=== PATIENT | male | born 1970 | race Caucasian/White ===

== ENCOUNTER 2025-03-26 02:56 | Inpatient (IN) | payer BC, SELFPAY ==
[2025-03-25 22:56] VITALS: BMI 22.6
[2025-03-25 22:59] VITALS: BP 168/110
[2025-03-25 23:42] LABS: Hematocrit 40.2 % (39.0-52.0); Hemoglobin 14.5 g/dL (13.0-18.0); Mean Corp Hgb Conc. 36.1 g/dL (33.0-37.0); Mean Corpuscular Volume 87.6 fL (80.0-94.0); Nucleated Red Blood Cells % 0 % (-); Platelet Count 232 10^3/uL (130-400); Red Cell Dist. Width 13.2 % (11.5-14.5)
[2025-03-25] MEDS: LOW STRENGTH ASPIRIN 324 MG PO (23:46)
[2025-03-25 23:47] VITALS: BP 158/107
[2025-03-25] MEDS: NITROSTAT (SUBLINGUAL) 0.4 MG SL (23:47)
[2025-03-25 23:57] LABS: ALT (SGPT) 16 U/L (0-50); AST (SGOT) 27 U/L (17-59); Albumin 4.8 g/dl (3.5-5.0); Alkaline Phosphatase 35 U/L (38-126); Blood Urea Nitrogen 10 mg/dl (9-20); Calcium 9.2 mg/dl (8.4-10.2); Carbon Dioxide 20 mmol/L (22-30); Chloride 105 mmol/L (98-107); Glucose 98 mg/dl (70-99); Potassium 3.6 mmol/L (3.5-5.1); Sodium 135 mmol/L (135-145); Total Protein 7.6 g/dl (6.3-8.2); eGFR > 60.00
[2025-03-26] VITALS (31 sets, daily range): BP systolic 109–155; BP diastolic 81–112
--- NOTE | 2025-03-26 00:14 | ED.GENMED ---
History of Present Illness
General
Chief Complaint: Chest Pain
Source: patient and spouse
Time Seen by Provider: 03/25/25 23:14
History of Present Illness
History of Present Illness:
55-year-old male presents to the emergency room complaining of chest discomfort. 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 Patient was loading his equipment into his car when began. He describes the
chest discomfort as sort of a heaviness. He has some radiation to his back into his left arm. He rates it a 6-7 out of 10. No associated nausea, shortness of breath or diaphoresis. Patient denies any known cardiac history. He denies
hypertension or high cholesterol. He does smoke about a pack a day. He drinks 3-4 drinks a day.
Past History
Past History
ED Past Medical History: None
ED Past Surgical History: Urological and Other (Hernia/wisdom teeth/volvulus)
Social History
Tobacco: Smoker
Alcohol: Daily
Drug: None
Personal:
Living: with family
Employment: Employed
Phy Exam
Physical Exam
Physical Exam:
General: Awake, Alert, Oriented X3. No acute distress.
Vitals: unremarkable
Head: Atraumatic
Eyes: Pupils equal, EOMI
Throat: Airway intact, no exudates
Neck: Trachea midline
Lungs: Clear and equal b/l
Heart: Regular rate, no murmurs
Abd: Soft, Nontender, No pulsatile mass
Neuro: Nonfocal
Skin: Warm, dry, no rash
Extremities: pulses equal b/l, no edema
Scores
Heart Score for Chest Pain Patients
STEMI patient?: Yes
Course
Orders/Labs/Results
Orders:
Orders
03/25/25 23:02
Electrocardiogram (*1) Urgent
Reason for Study: Other
Other Reason for Exam: Respiratory Distress
Cardiac Monitoring- Treatment ONCE
EKG- Treatment ONCE
IV Insert/Care/Rem.- Treatment PRN
O2 Therapy [RESP] Urgent
Titrate/Wean O2 to maintain O2 sat greater than (%): 93
Special Instructions: TO MAINTAIN CONTINUOUS O2 SATS >/= 93%
Pulse Ox/cont/shift [RESP] Urgent
Quantity: 1
Special Instructions: continuous pulse ox
03/25/25 23:19
Aspirin Chewable [Low Strength Aspirin] 324 mg PO NOW STA
Nitroglycerin Sublingual [Nitrostat (Sublingual)] 0.4 mg SL NOW STA
03/25/25 23:23
Electrocardiogram (*1) Urgent
Reason for Study: Chest Pain
EKG- Treatment ONCE
03/25/25 23:28
Complete Blood Count/With Diff Urgent
Comprehensive Metabolic Panel Urgent
NT-proBNP Urgent
Troponin I Urgent
03/26/25 00:00
CR Chest - 2 Views Urgent
Reason For Exam: respiratory distress
03/26/25 00:14
Nitroglycerin Sublingual [Nitrostat (Sublingual)] 0.4 mg SL [id number] PRN
03/26/25 00:23
Heparin 4,000 units IV NOW STA
Nitroglycerin 100 mg/250 ml [Nitroglycerin Premix] 100 mg in 250 ml IV NOW
Initial dose in mcg/min, then titrate:: 5
Titrate to keep:: SBP < 160 mmHg
Titrate by mcg/min:: 5 mcg/min, may increase by 10 mcg/min if dose > 20 mcg/min
Frequency of titrations (minutes):: every 3-5 minutes
Maximum dose in mcg/min:: 200
Begin to taper infusion when:: Remained at goal for 2hrs
Taper by mcg/min:: 5 mcg/min
Frequency of taper (minutes) if patient maintains goal:: 30
Taper to off?: Yes
If infusion off & no longer maintaining goal:: Contact Provider
Pharmacy Request to Place See Dose Instructions PO NOW STA
Discontinue all Active Warfarin orders?: Yes
Nursing to Place Non Medication Order As Directed
Physician Order: PTT 6 hours after initial start of Heparin infusion
Above order entered?: Yes
03/26/25 00:27
Electrocardiogram (*1) Urgent
Reason for Study: Chest Pain
EKG- Treatment ONCE
03/26/25 00:28
PTT Urgent
Comment: Obtain baseline before beginning heparin infusion if not already collected
03/26/25 00:30
Heparin 63338 Units/250 ml 25,000 units in 250 ml IV PER PROTOCOL
Weight to be used for heparin protocol in kilograms (kg):: 77.8
Protocol:: Cardiac Tx/Acute Coronary
PTT Goal Range to be used:: PTT 73 to 111 seconds
Order type:: Initial
INITIAL Infusion Dose (UNITS/KG/hr) & then follow protocol:: 15 units/kg/hr
Infusion Dose in UNITS/hr & then follow protocol (UNITS/hr):: 1,150
INFUSION RATE in mL/hr & then follow protocol (mL/hr):: 11.5
PTT less than or equal to 64 seconds:: Increase rate by 200 units/hr (+ 2 mL/hr)
PTT 64.1 to 72.9 seconds:: Increase rate by 100 units/hr (+ 1 mL/hr)
PTT 73 to 111 seconds:: Target Range. No change in rate.
PTT 111.1 to 130.9 seconds:: Decrease rate by 100 units/hr (- 1 mL/hr)
PTT 131 to 199.9 seconds:: HOLD for 1 hr. Then decrease rate by 200 units/hr (- 2 mL/hr)
PTT greater than or equal to 200 seconds:: HOLD for 2 hrs & Notify Provider. Then decrease by 200 units/hr (-
2 mL/hr)
Lab follow-up:: Each change, PTT q6h until 2 consecutive are therapeutic. Then PTT
daily.
03/26/25 01:[address] See Dose Instructions IV DIRECTED
03/26/25 01:03
Verapamil Injectable [Isoptin/Verapamil Injection] 5 mg .ROUTE .STK-MED ONE
03/26/25 01:04
Heparin 10,000 units .ROUTE .STK-MED ONE
Heparin 1000 Units/500 ml [Heparin] 1,000 units in 500 ml .ROUTE .STK-MED
Lidocaine HCl/Pf [Xylocaine-Mpf 1% Vial] 100 mg .ROUTE .STK-MED ONE
Nitroglycerin [Tridil] 1,500 mcg .ROUTE .STK-MED ONE
03/26/25 01:17
Fentanyl Citrate/Pf [Sublimaze] 100 mcg .ROUTE .STK-MED ONE
Midazolam HCl [Versed] 2 mg .ROUTE .STK-MED ONE
03/26/25 01:42
EPTIFIBATIDE 75 mg/100 mL [Integrilin] 75,000 mcg in 100 ml .ROUTE .STK-MED
Eptifibatide [Integrilin] 20 ml .ROUTE .STK-MED
03/26/25 01:57
Ticagrelor [Brilinta] 180 mg .ROUTE .STK-MED ONE
03/26/25 02:44
Admit Patient As Directed
Co-Sign Provider:
Level of Care: Inpatient admission
Assign to:: IVU
Physician / Group: Claude/GAMALIEL until 7AM, then Eddie/ROBBIE.
Diagnosis: Anterior STEMI.
Patient Condition: Good
Reason for Hospitalization: Anterior STEMI.
Expected length of stay greater than two midnights?: Yes
ELOS- Estimated Length of Stay in days: 4
I certify the patient meets the requirements for IP care: Yes
Reason for Overnight Stay: Standard of Care
Electrocardiogram (*1) Urgent
Reason for Study: Other
Other Reason for Exam: s/p intervention
Code Status As Directed
Resuscitation Status: Full Code
CARDIAC REHAB CONSULT Routine
Co-Sign Provider:
Cardiac Rehab & Exercise Evaluation Referral
Type of Cardiac Rehab Referral: Outpatient
Diagnosis: STEMI
Date of Diagnosis/Surgery: 03/26/2025
Referring Provider: Hung Arce
[facility] Intensive Cardiac Rehab Exercise Prescription
The above named person is capable of participating in an intensive cardiac rehab exercise therapy program
under the guidance of the [facility] cardiac rehab staff, outpatient registered dieticians and
supervision of a physician.
ICR Program Objectives:
Provide supervised exercise, cooking classes, nutritional counseling and healthy mind-set education to
improve the function/symptom free work capacity to an optimal level as well as control risk factors to
prevent the progression of heart disease. During the supervised exercise therapy session some or all of
the following may be included in the cardiac rehab session: ECG telemetry, BP, heart rate, rate of
perceived exertion, symptoms/tolerance, cholesterol testing and education. Exercise modalities may
include: treadmill, upright or recumbent bike, spin bike, rowing machine, elliptical, recumbent
elliptical, arm-bike machine, recumbent stepper and free weights.
Intensity:
All CR staff will use ACSM guidelines: Most patients will exercise in the following range: Heart Rate
[place] range of 40% to 80% & Oxygen Uptake reserve range 40-80% (VO2R). Peak heart rate and VO2 are
derived from the cardiac rehab submaximal graded exercise test at RPE of 13/14 out of 20. Initial
intensity range: RPE 11 to 14/20 and may expand to 11 to 16/20.
Duration & Frequency:
If appropriate the patient will be progressed up to 40 minutes of exercise therapy. Patients will be
instructed to come three times a week in cardiac rehab and at a home/other gym to achieve optimal
physical activity/exercies i.e. 4000-10,000 steps per day.
Education:
The patient will receive one-on-one education during their orientation, initial exercise evaluation, ITP
reassessments and discharge session. Each exercise session will also include an education class (30-40
minutes).
Acetaminophen [Tylenol] 650 mg PO Q4HPRN PRN
Fentanyl Citrate/Pf [Sublimaze] 25 mcg IV [id number] PRN
Midazolam HCl [Versed] 1 mg IV Q5MPRN PRN
Morphine Sulfate 2 mg IV Q1HPRN PRN
Nitroglycerin Sublingual [Nitrostat (Sublingual)] 0.4 mg SL [id number] PRN
Oxycodone/Acetaminophen [Percocet 5/325] 1 tablet PO Q4HPRN PRN
Activity As Directed
Activity Level: Out of Bed- Chair
Comment: bed/chair rest for 2 hours then out of bed ad rafal
Band Attacher Procedure As Directed
Cardiac Cath Procedure: percutaneous coronary intervention
Intake/ Output As Directed
Frequency: Per unit guidelines
Notify MD As Directed
Notify physician if: immediately for chest pain or bleeding from access site(s)
Radial Artery Hemostasis Method As Directed
Instructions:: 3 mL out at 2 hour posts placement of band
3 mL out at 2 1/2 hours post placement of band
3 mL out at 3 hours post placement of band
Off at 3 1/2 hours post placement of band
If any oozing or hemotoma occurs:: re-inflate band and call provider
Site Checks As Directed
Check access site for bleeding/hematoma: Yes
Comment: on arrival, Q15min x4, Q30min x2, Q1 hr x2, Q2 hr x2, Q4 hr or per
protocol
Vascular Checks As Directed
Location: distal to access site - pulse check
Frequency: Other
Comment: on arrival, Q15min x4, Q30min x2, Q1 hr x2, Q2 hr x2, Q4 hr or per protocol
Venous Foot Pumps As Directed
Location: Bilateral feet
Vital Signs As Directed
Frequency: Other
Additional Instructions:: on arrival, Q15min x4, Q30min x2, Q1 hr x2, Q2 hr x2, then Q4 hr or per unit
protocol
PRN Pain Medication Management As Directed
May give lesser potent ordered pain med per pt: Yes
preference::
Protocol:: Medication orders for pain may be administered in a
manner that supports deferring to patient preference
when the pt is:
- Requesting an ordered lesser potent pain medication.
Least to most potent pain medications are defined
as: acetaminophen < NSAID < tramadol < opioids
(morphine, oxycodone, hydromorphone).
- Requesting a lesser dose of the same medication IF
ORDERED.
- Requesting a less intrusive route of administration
if both routes are prescribed by the provider (PO <
IV).
03/26/25 02:45
0.9% Sodium Chloride 1000 ml [Nss] 1,000 ml IV PER PROTOCOL
Infusion rate in mL/kg/hr:: 1.5
Infusion rate in mL/hr:: 117
Duration of infusion (hours):: 5
EPTIFIBATIDE 75 mg/100 mL [Integrilin] 75,000 mcg in 100 ml IV ORDERED RATE
DX Deep Vein Thrombosis Video Routine
03/26/25 03:00
Flush (0.9% Sodium Chloride) [Flush (Nss)] See Dose Instructions IV PER PROTOCOL
03/26/25 03:56
Basic Metabolic Panel IN AM
Complete Blood Count/No Diff IN AM
Glycohemoglobin (HgbA1c) Routine
Troponin I Q6H
03/26/25 06:00
Echo 2D MMode Color/Doppler IN AM
Reason for Study: Anterior STEMI.
Electrocardiogram (*1) IN AM
Reason for Study: Other
Other Reason for Exam: s/p intervention
Cholesterol Lowering
At Your Request: Full Participation
Cholesterol Lowering: Sodium, 2 Gram
03/26/25 08:00
Ticagrelor [Brilinta] 90 mg PO BID
03/26/25 08:50
Troponin I Q6H
03/26/25 14:28
Troponin I Q6H
03/26/25 18:00
Atorvastatin [Lipitor] 40 mg PO QPM
Abnormal Lab Results
03/25/25 03/26/25 03/26/25
23:28 01:40 02:33
WBC 12.0 H 10^3/uL
(4.8-10.8)
RBC 4.59 L 10^6/uL
(4.70-6.10)
MCH 31.6 H pg
(27.0-31.0)
Abs Immat Gran (auto) 0.1 H 10^3/uL
(0-0.05)
Absolute Neuts (auto) 9.0 H 10^3/uL
(1.4-6.5)
Absolute Monos (auto) 0.9 H 10^3/uL
(0.1-0.6)
Neutrophils % 75.4 H %
(42.2-75.2)
Lymphocytes % 15.2 L %
(20.5-51.1)
Carbon Dioxide 20 L mmol/L
(22-30)
Total Bilirubin 1.5 H mg/dl
(0.2-1.3)
Alkaline Phosphatase 35 L U/L
(38-126)
Troponin I 0.135 H* ng/ml
POC ACT Low Range 398 H Seconds 310 H Seconds
(116-155) (116-155)
03/25/25 23:28
03/25/25 23:28
Vital Signs
Initial and Last Documented VS:
Initial Vital Signs
Temp Pulse Resp BP Pulse Ox
97.8 F 73 20 168/110 100
03/25/25 22:59 03/25/25 22:59 03/25/25 22:59 03/25/25 22:59 03/25/25 22:59
Last Documented Vital Signs
Temp Pulse Resp BP Pulse Ox
98.3 F 65 18 141/87 98
03/26/25 20:27 03/26/25 20:45 03/26/25 20:27 03/26/25 20:27 03/26/25 20:27
MDM/Problems Addressed
Differential Diagnosis Includes:
STEMI, NSTEMI, unstable angina, pneumothorax
MDM/Problems Addressed:
Patient presents with chest pain. Description of pain is concerning for coronary syndrome. Initial EKG was abnormal in appearance to me but because I did not see reciprocal changes decided to repeat an EKG to see if there is dynamic changes.
Second EKG appeared more normal. Therefore the plan was to treat with nitro to see if we can make her pain-free. Patient's chest pain did not significantly improve with sublingual nitro baby aspirin. Nitro drip was ordered. First troponin came
back positive at 0.135. 30 EKG was obtained which appears to showed progression and in consultation with Dr. Pena STEMI alert was called. Reason for delay of STEMI alert is diagnostic uncertainty
*Radiology
Radiology exam reviewed: preliminary read by ED provider (No acute disease in my review of the chest x-ray)
*Pulse Oximetry
SaO2: 99
Oxygen Mode of Delivery: Room air
Patient hypoxic: no
*Nuclear Medicine Chief Technologist Interpretation
Rate: normal
Interpretation: normal
Heart Rate: 59
Rhythm: sinus
*Critical Care Note
Total Time (30-74mins, 75-104mins- exclusive of procedures): 45 min
comment:
Critical care statement: A total of 45 minutes of critical care time was provided for this patient. This includes management of unstable vital signs, evaluation of the patient at bedside, reviewing the patient's pertinent medical records, discussion
with consultants, review of old EKGs and review of pertinent medical records. This time with separate from time utilized to perform the aforementioned documented procedures
ED Attending Note
-
Portions of this chart may have been created with voice recognition software.� Occasional wrong word or��sound alike� substitutions may have occurred due to the inherent limitations of voice recognition software.
Discharge Plan
Departure
Patient Disposition: Admit
Date of Disposition: 03/26/25
Time of Disposition: 00:42
Admit to: greens lab[facility]
Presentation/result/management discussed w/ accepting MD/DO: Rodríguez
Condition: Serious
Discharge Problem:
ST elevation (STEMI) myocardial infarction
Interventions
Interventions:
*Risk Screen - Suicide Last Done: 03/26/25 01:24
*General Assessment Last Done: 03/26/25 01:24
*Neglect/Abuse Screening Last Done: 03/26/25 01:24
*ED- Fall Risk Assessment Last Done: 03/26/25 01:24
*ED COVID-19 Vaccine History Last Done: 03/26/25 01:24
*Nursing Disposition Last Done: 03/26/25 01:24
ED- Cardiac Assessment Last Done: 03/26/25 01:24
Discharge Date and Time
Discharge Date/Time: 03/26/25 01:27
[2025-03-26 00:15] LABS: Troponin I 0.135 ng/ml
[2025-03-26] MEDS: NITROSTAT (SUBLINGUAL) 0.4 MG SL (00:16)
[2025-03-26] MEDS: HEPARIN 4000 UNITS IV (00:31)
[2025-03-26] MEDS: NITROGLYCERIN PREMIX 250 IV (00:32)
[2025-03-26 00:45] LABS: APTT 28.5 Sec (23.4-35.0)
--- NOTE | 2025-03-26 01:00 | PTCARENOTE ---
Dr rodriguez obtained consent at bedside. report given to laborer syrup machine RN. Pt transported on monitor and nitro gtt to laborer syrup machine
--- NOTE | 2025-03-26 01:05 | HPS.HSE ---
Family Physician
-
Family Physician: NOT KNOW UNKNOWN - PT DOES
Chief Complaint
-
Chest pain.
History of Present Illness
55 y/o male tobacco user without significant past medical history presenting with 2+ hours of chest pain. 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 Pain persisted after arriving home and he was transported to [facility].
Pain was 8/10 at its worst, now 2/10 after nitroglycerin and medical management. Initial EKG shows possible anterior ALFONSO, though not absolutely definitive. Symptoms were persistent and progressive EKG's became more concerning. STEMI alert was
called for likely STEMI equivalent after discussing cardiology.
Medical History
Past Medical History
Past Medical History: Reports None
Past Surgical History: Reports Bowel Resection (Laproscopic ileocolectomy with primary anastamosis.)
Social History
Tobacco: Smoker (1 PPD x many years.)
Alcohol: Daily (4-5 beers.)
Drug: None
Personal:
Living: With Family
Family History
Family History: Not pertinent
Allergies / Home Medications
Allergies reflects when Allergies were last updated in [employer].
Home Medications with original date entered in [employer]
Allergy/Medication List:
Home Medications:
None.
Allergies:
NKDA.
Review of Systems
-
History Source: Patient and Family
Constitutional: Reports See HPI
EENT: Reports No Symptoms
Respiratory: Reports No Symptoms
Cardiac: Reports Chest Pain
Abdomen/GI: Reports No Symptoms
: Reports No Symptoms
Musculoskeletal: Reports No Symptoms
Physical Exam
Vital Signs
Vital Signs
Temp Pulse Resp BP Pulse Ox
36.6 C 65 18 141/94 98
03/26/25 01:00 03/26/25 01:00 03/26/25 01:00 03/26/25 00:16 03/26/25 01:00
Physical Exam
General: Well Developed, Well Nourished, No Apparent Distress and Conversant
HEENT: NormoCephalic, Anicteric, Moist mucous membranes, Atraumatic, Good Dentition, PERRLA, [place] Conjunctivae, No Ptosis, Nose Appears Normal, Ears Appear Normal and Neck Nontender
Respiratory: Clear, Rhonchi (Mild basilar rhonchi, cleared with cough.) and Non Labored Respirations
Cardiac: S1/S2 and Regular Rhythm
Breast: Deferred by me
GI: Soft, Non Tender, Non Distended and Normal Bowel Sounds
Rectal: Deferred by Provider
Genito-urinary: Deferred by me
Musculoskeletal: No Clubbing, No Cyanosis and No Edema
Skin: Warm and Dry
Neuro: AO x 3, No Motor Deficits and Nonfocal/grossly intact
Hematologic/Lymphatic: No Lymphadenopathy
Psych: Calm and Intact Judgment/Insight
Laboratory Results
-
03/25/25 23:28
03/25/25 23:28
Laboratory Results
APTT 28.5 Sec (23.4-35.0) 03/26/25 00:28
Total Bilirubin 1.5 mg/dl (0.2-1.3) H 03/25/25 23:28
AST 27 U/L (17-59) 03/25/25 23:28
ALT 16 U/L (0-50) 03/25/25 23:28
Alkaline Phosphatase 35 U/L (38-126) L 03/25/25 23:28
Troponin I 0.135 ng/ml H* 03/25/25 23:28
Data Reviewed
-
Diagnostic Radiology: Image Personally Visualized and interpreted and Report Reviewed by me
Medical Tests (Nuc Med, Echo, EKG etc): Image Personally Visualized and interpreted, Report Reviewed by me and Discussed with Physician
Lab Data: Labs Reviewed by me and Discussed with Physician
Old Records: Reviewed
Impression/Plan
-
Impression/Plan: 55 y/o male tobacco user presenting with chest pain, abnormal EKG with borderline anterior ALFONSO and abnormal troponin, deemed to be a STEMI equivalent.
#ACS/STEMI
-Acute, threat to life.
-Plan for emergent cardiac catheterization/coronary angiography with ad hoc PCI.
-Heparin/aspirin/nitro given in ER.
-Risks/benefits explained.
-Consent is signed and on the chart.
-Further instructions to follow.
#Tobacco abuse
-Chronic.
-Recommended full cessation.
#EtOH use
-Chronic, 4-5 beers daily.
-Recommended curbing his volume/abstinence.
-Monitor for signs of withdrawal/DT's.
-[employer] post farm laborer.
[2025-03-26 01:47] LABS: ACT-LR - POC 398 Seconds (116-155)
[2025-03-26 02:40] LABS: ACT-LR - POC 310 Seconds (116-155)
--- NOTE | 2025-03-26 02:48 | ITS.CL.CATH ---
Gameplay Programmer - Catheterization
Cardiac Catheterization
Procedure Report:
CARDIAC CATHETERIZATION REPORT
Date of Procedure: 03/26/2025
Referring: Ta Ramirez D.O.
INDICATION: Anterior ST elevation myocardial infarction.
PROCEDURE:
1. Left heart catheterization.
2. Coronary angiography
3. Successful aspiration thrombectomy of the mid LAD.
4. Successful PCI of the mid LAD.
5. Successful PCI of the proximal LAD.
6. Intravascular ultrasound.
A total of 76 minutes of procedural/moderate sedation was utilized. An independent medical equipment repairer was present to assist with and help manage the patient's level of consciousness and physiologic status.
ACCESS:
1. 6 [place] right radial artery using a modified Seldinger technique.
CATHETERS:
1. 5 [place] JR4.
2. 5 [place] JL 3.5.
3. 6 [place] EBU 3.5 guiding catheter.
HEMODYNAMIC DATA
Weight (kg): 77.6
AO (s/d/x, mmHg): 119/80/96
LV (s/x mmHg): 122/10
LEFT VENTRICULOGRAPHY: Not performed.
CORONARY ANGIOGRAPHY
Dominance: Left.
Left Main: Large size, bifurcating vessel. There is no coronary artery disease.
LAD: Large size vessel giving rise to 1 large diagonal. There is a 30% lesion in the ostium of the LAD. There is a 70% lesion in the proximal/mid LAD, immediately after the origin of the first diagonal. The mid LAD is acutely occluded
approximately 10 mm distal to the 70% lesion. The occlusive lesion extends approximately 30 mm distal.
Ramus: Congenitally absent.
Circumflex: Large size, dominant vessel giving rise to a large obtuse marginal which subsequently bifurcates into 2 daughter vessels. There is a 50-60% lesion in the distal circumflex, distal to the origin of the obtuse marginal well proximal to
the vessel becoming the LPDA.
RCA: Small size, nondominant vessel. There is no coronary artery disease.
INTERVENTION(S)
1. Successful aspiration thrombectomy of the mid LAD, restoring WILD-3 flow.
2. Successful IVUS guided PCI of the 100% mid LAD lesion (Xience Skypoint 3.0 x 38 GREGORY, postdilated with a 3.0 NC balloon, followed by a 3.25 NC balloon throughout), with reduction in stenosis to 0%, maintaining WILD-3 flow.
3. Successful IVUS guided PCI of the 70% proximal/mid LAD lesion (Xience Skypoint 3.5 x 23 GREGORY overlapping with the distal 3.0 stent, postdilated with a 3.75 NC balloon throughout, followed by a 5.0 x 8 NC balloon in the proximal margin) with
reduction in stenosis to 0%, maintaining WILD-3 flow.
Narrative:
The decision was made to proceed with percutaneous coronary intervention. The diagnostic catheter was removed over a wire and a 6Fr EBU 3.5 guiding catheter was advanced to the aortic root and seated in the left main coronary artery. Additional
heparin was given and a Power Turn Flex wire was advanced into the distal LAD. The advancement of the wire restored WILD I flow in the vessel. Eptifibatide was started as a double bolus and drip.
The decision was made to perform aspiration thrombectomy. An ALMA catheter was prepped and flushed on the back table then connected to a syringe which was pulled to negative. The catheter was advanced into the mid LAD. The stopcock was opened to
the vacuum syringe and the catheter was passed through the thrombotic segment. The catheter was withdrawn from the guiding catheter, maintaining negative pressure. The contents were emptied into the filter basket. 2 pieces of large thrombus were
observed in the basket. Repeat angiography demonstrated WILD-3 flow and an ulcerated mid LAD lesion.
The mid LAD lesion was predilated with a 2.0 x 12 semi-compliant balloon to 12 basil. The semi-compliant balloon was removed and a Xience Skypoint 3.0 x 38 drug-eluting stent was advanced. The stent was deployed at 12 atmospheres.
The decision was made to perform intracoronary imaging. An IVUS catheter was advanced through the guiding catheter and into the ostium of the artery. Ring down was performed once the imaging crystal was no longer inside of the guiding catheter. The
IVUS catheter was advanced into the mid LAD, beyond the stented segment. Intravascular ultrasound was performed in a retrograde fashion using a slow pullback. Intracoronary imaging demonstrated good stent apposition within the stented segment but
some underexpansion in the distal margin of the stented segment. IVUS also revealed a significant lesion in the proximal/mid LAD consistent with a 70% lesion seen on angiography. Vessel sizing was performed..
The IVUS catheter was removed. A 3.0 x 20 noncompliant balloon was advanced into the stent and the stent was postdilated to 15 atmospheres in the distal margin and 16 basil in the proximal and mid section.
The decision was made to extend the stented segment proximal to cover the 70% lesion, jailing the large diagonal. A BMW wire was advanced into the large diagonal for protection. A Xience Skypoint 3.5 x 23 drug-eluting stent was advanced.
Meticulous care was taken while positioning the stent, making sure that the distal aspect of the stent overlapped the more distal stent while the proximal edge completely cover the lesion and did not obstruct the ostium of the diagonal. When we
were satisfied with our position, the stent was deployed at 12 basil. The stent balloon was withdrawn and a 3.75 x 15 noncompliant balloon was advanced. The stent overlap was dilated to 12 basil. The more proximal stent was dilated to 14 basil.
IVUS was reintroduced and the entire stented segment was reimaged. This demonstrated excellent stent apposition throughout the overwhelming majority of the stent with persistent underexpansion in some margins of the more distal stent. It did
demonstrate mall apposition of the proximal margin of the stented segment. Vessel measurements in the proximal vessel were obtained.
We attempted to advance a 3.25 x 15 noncompliant balloon but had difficulty traversing the ostium of the stented segment, likely due to the balloon catching the stent edge from mall apposition. A guide liner was advanced into the LAD using the 2.0
x 12 semicompliant balloon to bias the GuideLiner away from the stent. When the GuideLiner was beyond the stent ostium, the 3.25 x 15 noncompliant balloon was readvanced and the entire distal stented segment was postdilated to 16 basil. A 3.25 x 15
noncompliant balloon was withdrawn. A 5.0 x 8 noncompliant balloon was advanced. The proximal edge of the proximal stent was postdilated to 12 basil. The noncompliant balloon was withdrawn.
Angiography was performed in orthogonal views, confirming good stent expansion and an excellent angiographic result. The coronary wire was withdrawn and the guide was disengaged from the artery. The catheter was removed over a standard J-wire.
Closure Device: Vascular band.
Radiation (mGy): 600.75
DAP (cm2.Gy): 47.2659
Fluoroscopy time (minutes): 19 point
CONCLUSIONS
1. Left dominant circulation with a 50-60% lesion in the distal circumflex proximal to the LPDA, a 30% lesion in the ostium of the LAD, a 70% lesion in the proximal/mid LAD and an acute mid LAD occlusion status post successful aspiration
thrombectomy and IVUS guided PCI of the proximal/mid LAD lesions (overlapping Xience Skypoint 3.0 x 38 GREGORY and 3.5 x 23 GREGORY, postdilated with a 3.0 NC balloon throughout, 3.25 NC balloon throughout the distal stent, a 3.75 NC balloon throughout the
entire proximal stent and overlap and a 5.0 x 8 NC balloon in the proximal margin of the proximal stent) with reduction in LAD stenoses to 0%, restoring WILD-3 flow.
2. Normal filling pressures (LVEDP = 10 mmHg at 77.6 kg).
RECOMMENDATIONS:
1. Expectant management after cardiac catheterization via right right approach.
2. Limited weight bearing on the right wrist for one week.
3. Dual antiplatelet therapy with aspirin and ticagrelor for at least 12 months, followed by aspirin indefinitely.
4. Aggressive secondary prevention with high-dose, high potency statin. Fasting lipid panel pending. Goal LDL <55.
5. OMT/GDMT as hemodynamics will tolerate. Bradycardia presents, limiting use of beta-cleopatra.
6. Echocardiogram ordered and pending.
7. Referral to cardiac rehab.
Copy to: Wyatt Fung D.O., Chuck Morgan D.O.
Hung Arce DO, FACC, FACP
[2025-03-26] MEDS: NSS 1000 IV (03:37)
[2025-03-26] MEDS: TYLENOL 650 MG PO ×2 (03:40→16:48)
--- NOTE | 2025-03-26 04:01 | PTCARENOTE ---
received the patient from the receiver/laborer at approx 0250. AAOx3. complaining of middle, upper back pain; 10/10. unchanged from receiver/laborer-known. nitro gtt infusing- titrate off per Dr. Arce. Integrilin infusing per order, see mar. denies any chest pain.
SB/SR on tele- 50s-60. bp stable. R radial band intact. + pulse/good cap refill. denies any sob. at the bedside with Dr. Arce. reviewed plan of care with patient and verbalized understanding. oriented to room. educated to call with any
changes.
At 0342- patient had a 30 beat run of VT. RN in room. patient coughed out of it. denies any symptoms. HR returned to SR 60s. Dara CV ALINA updated. labs ordered and sent.
[2025-03-26 04:13] LABS: Hematocrit 39.1 % (39.0-52.0); Hemoglobin 13.8 g/dL (13.0-18.0); Mean Corp Hgb Conc. 35.3 g/dL (33.0-37.0); Mean Corpuscular Volume 89.9 fL (80.0-94.0); Platelet Count 237 10^3/uL (130-400); Red Cell Dist. Width 12.8 % (11.5-14.5)
[2025-03-26 04:42] LABS: Troponin I 7.020 ng/ml
[2025-03-26 05:13] LABS: Blood Urea Nitrogen 9 mg/dl (9-20); Calcium 9.3 mg/dl (8.4-10.2); Carbon Dioxide 23 mmol/L (22-30); Chloride 108 mmol/L (98-107); Estimated Creatinine Clearance > 125 ml/min; Glucose 107 mg/dl (70-99); Magnesium 2.1 mg/dl (1.6-2.3); Potassium 4.1 mmol/L (3.5-5.1); Sodium 137 mmol/L (135-145); eGFR > 60.00
--- NOTE | 2025-03-26 06:22 | PTCARENOTE ---
13 beat run of VT. patient sleeping in bed at the time. denies any symptoms when asked. denies any cp/back pain at this time. nitro weaned off. HR 60s. bp 125/94.
[2025-03-26] MEDS: BRILINTA 90 MG PO ×2 (08:41→20:30)
[2025-03-26] MEDS: THIAMINE INJECTION 200 MG IV ×2 (08:41→20:30)
[2025-03-26] MEDS: FOLVITE 1 MG PO (08:41)
[2025-03-26] MEDS: INTEGRILIN 100 IV (08:44)
--- NOTE | 2025-03-26 09:14 | PTCARENOTE ---
received patient this am in bed, lying,restless, 'I have chest discomfort only a 1 out of 10, cannot get comfortable', Dr. Knapp aware and will be in to see patient. monitor is showing runs of Vtach. IV Integrilin@ 12cc/hr via right arm. MSAS is
a 1 due to restlessness. another troponin just drawn and sent to lab.
[2025-03-26 09:30] LABS: Troponin I 21.600 ng/ml
[2025-03-26] MEDS: CORDARONE 103 MG IV (10:25)
--- NOTE | 2025-03-26 10:28 | PTCARENOTE ---
Addendum entered by Yolanda Arguello RN 03/26/25 11:33:
troponin 21.6 Dr. Knapp aware.
Original Note:
in seeing patients, gave IV bolus of amiodarone then will start IV amiodarone drip as ordered.
[2025-03-26] MEDS: CORDARONE 518 MG IV (10:43)
[2025-03-26 11:00] LABS: Glycohemoglobin (HgbA1c) 5.1 % (4.0-5.6)
[2025-03-26 15:06] LABS: Troponin I 24.400 ng/ml
--- NOTE | 2025-03-26 16:11 | PTCARENOTE ---
troponin 24.4, TT , aware. will obtain another troponin in 6 hours. patient stated that discomfort,restlessness is less. patient able to eat something fo lunch,ramses. well. IV integrellin @ 12cc/hr via right arm.IV amiodarone decreased
to0.5mg/hr as per protocol.
--- NOTE | 2025-03-26 16:49 | PTCARENOTE ---
patient c/o frontal headache, 1 out of 10, Tylenol po given as ordered.
[2025-03-26] MEDS: LIPITOR 40 MG PO (17:30)
[2025-03-26 21:30] LABS: Troponin I 20.400 ng/ml
--- NOTE | 2025-03-26 21:43 | PTCARENOTE ---
received patient at the change of shift. AAOx3. denies any chest discomfort. states feeling better but just tired. SB/SR on tele 50s-60s. bp 147/87. MSAS 0. integrilin gtt stopped per order. amio gtt continued at 16.7 ml/hr. ambulated to the
bathroom with no issues. R radial site intact. educated patient to inform Rn with any changes overnight. call kat within reach.
[2025-03-27] VITALS (14 sets, daily range): BP systolic 125–141; BP diastolic 83–109
--- NOTE | 2025-03-27 08:05 | W.PN.CD ---
Today's Communication / Plan
-
D/C amiodarone.
Start carvedilol 3.125 mg BID.
Echocardiogram.
NPO for repeat cath, iFR of LCx today.
Impression / Plan
-
Impression/Plan: 55 y/o male tobacco user with significant EtOH intake admitted with anterior STEMI.
#ACS/STEMI
-Acute.
-Troponin peaked at 24.4.
-S/P IVUS guided PCI to the proximal/mid LAD (overlapping Xience Skypoint 3.0 x 38 GREGORY and 3.5 x 23 GREGROY, post dilated with 3.25 NCB throughout, 3.75 NCB in the overlap and proximal stent and 5.0 x 8 NCB in the proximal margin of proximal stent),
03/26/2025.
-Echocardiogram pending.
-DAPT with aspirin and ticagrelor for at least 12 months, followed by aspirin indefinitely.
-NSVT yesterday. Amiodarone given with resolution. Beta cleopatra withheld due to bradycardia (50's). Change to carvedilol 3.125 mg BID and d/c amiodarone.
-High dose, high potency statin.
#CAD
-New diagnosis.
-Residual 50-60% lesion in dLCx (proximal to LPDA).
-NPO for repeat cath, iFR of LCx lesion today.
#Tobacco abuse
-Chronic.
-Recommend complete cessation.
#EtOH use
-Chronic, 5-6 beers daily.
-MSAS protocol.
-Recommend curbing use to < 2 drinks daily.
#PPx
-SCD's for DVT/VTE.
-No role for PPI.
#Dispo
-IVU status.
-Full code.
Subjective/Interval History:
Amiodarone added for bursts of NSVT.
Feels well.
Troponin peaked at 24.4.
DATA:
Cardiac catheterization/PCI, 03/27/2025:
CONCLUSIONS
1. Left dominant circulation with a 50-60% lesion in the distal circumflex proximal to the LPDA, a 30% lesion in the ostium of the LAD, a 70% lesion in the proximal/mid LAD and an acute mid LAD occlusion status post successful aspiration
thrombectomy and IVUS guided PCI of the proximal/mid LAD lesions (overlapping Xience Skypoint 3.0 x 38 GREGORY and 3.5 x 23 GREGORY, postdilated with a 3.0 NC balloon throughout, 3.25 NC balloon throughout the distal stent, a 3.75 NC balloon throughout the
entire proximal stent and overlap and a 5.0 x 8 NC balloon in the proximal margin of the proximal stent) with reduction in LAD stenoses to 0%, restoring WILD-3 flow.
2. Normal filling pressures (LVEDP = 10 mmHg at 77.6 kg).
Physical Exam
Vital Signs/Labs
Vital Signs
Temp Pulse Resp BP Pulse Ox
36.3 C 57 20 129/89 98
03/27/25 07:04 03/27/25 04:01 03/27/25 07:04 03/27/25 04:01 03/27/25 07:04
03/25/25 03/26/25 03/27/25
11:59 11:59 11:59
Actual Weight 77.8 kg
03/26/25 03:56
03/26/25 03:56
APTT 28.5 Sec (23.4-35.0) 03/26/25 00:28
Magnesium 2.1 mg/dl (1.6-2.3) 03/26/25 03:56
03/25/25
23:28
Zbu-C-Asmuzjdpzjw Pept 169
LAB Results
03/25/25 03/26/25 03/26/25
23:28 03:56 08:50
Troponin I 0.135 H* 7.020 H* D 21.600 H* D
03/26/25 03/26/25
14:28 20:40
Troponin I 24.400 H* 20.400 H*
Physical Exam
Constitutional: No acute distress and Comfortable
EENT: Anicteric and Moist mucous membranes
Cardiovascular: Rhythm & rate is regular, Pedal edema is absent, JVD pressure is normal, S1S2 is normal and Murmur/rub/gallop absent
Respiratory: Respiratory effort normal, Lungs clear to auscul., Wheeze Absent, Crackles Absent and Rhonchi Absent
GI: Soft, Distention absent, Flat, Non tender and Normal bowel sounds
Neuro/Psych: AO x 3
Other: Cath Site (Right radial access site is C/D/I.)
Data Reviewed
-
Date of Service: March 27, 2025
Medical Decision Making: Reviewed Test Results, Independent Historian Assessment and Test Interpretation
EKG: Tracing Personally Visualized and interpreted and Report Reviewed by me
Echo: Ordered by me
X-Ray/CT/US/MRI/NUC/PET: Image Personally Visualized and interpreted and Report Reviewed by me
Medical Tests (PFT, Pathology etc): Image Personally Visualized and interpreted, Report Reviewed by me and Discussed with Patient
Labs: Labs Reviewed by me
Old Records: Reviewed
[2025-03-27] MEDS: THIAMINE INJECTION 200 MG IV ×2 (08:33→20:49)
[2025-03-27] MEDS: BRILINTA 90 MG PO ×2 (08:33→20:48)
[2025-03-27] MEDS: FOLVITE 1 MG PO (08:33)
[2025-03-27] MEDS: FLUSH (NSS) 1 FLUSH IV (08:34)
[2025-03-27 09:14] LABS: ACT-LR - POC > 397 Seconds (116-155)
[2025-03-27] MEDS: CORDARONE 518 MG IV (09:29)
[2025-03-27 09:32] LABS: Blood Urea Nitrogen 9 mg/dl (9-20); Calcium 9.5 mg/dl (8.4-10.2); Carbon Dioxide 28 mmol/L (22-30); Chloride 107 mmol/L (98-107); Estimated Creatinine Clearance 113 ml/min; Glucose 96 mg/dl (70-99); HDL Cholesterol 61 mg/dl; LDL Cholesterol, Calculated 90 mg/dl; Magnesium 2.2 mg/dl (1.6-2.3); Potassium 4.5 mmol/L (3.5-5.1); Sodium 138 mmol/L (135-145); Very Low Density Lipoprotein 14 mg/dl (0-30); eGFR > 60.00
--- NOTE | 2025-03-27 09:51 | PTCARENOTE ---
received patient this am, monitor shows SB, VSS. IV amiodarone @ 16.7ml/hr via left forearm. MSAS 0. asked if patient needed a nicotine patch, patient response was no, but I will take a cigarette. right radial dsg. D/I, distal pulse palpable.
patient remains NPO for cath today. echo completed at bedside.
--- NOTE | 2025-03-27 11:44 | CM ---
Chart reviewed. Patient is independent of ADLS, lives with his in a 2 [address], 2 ALFONSO, 0 DME. Offered patient Elena on substance abuse counseling, patient refused. Plan is for the patient to return home. CM to assess
--- NOTE | 2025-03-27 11:45 | CM ---
Pricing on Brilinta through the patients [facility] Prescription Plan is $0 copay for the generic Ticagrelor. Patient's PP is a generic preferred. Brilinta is covered at $10 but needs to have a DAW1 written on the script, since he has a generic
preferred plan. Ticagrelor is available at the patient's [facility]
[2025-03-27] MEDS: LOW STRENGTH ASPIRIN 81 MG PO (13:43)
--- NOTE | 2025-03-27 13:46 | PTCARENOTE ---
aspirin 81mg po given as ordered.
--- NOTE | 2025-03-27 15:02 | ITS.CL.CATH ---
Assisted Living Housekeeper - Catheterization
Cardiac Catheterization
Procedure Report:
CARDIAC CATHETERIZATION REPORT
Date of Procedure: 03/27/2025
Referring: Hung Arce D.O.
INDICATION: Staged IFR of circumflex after anterior STEMI.
PROCEDURE:
1. Left-sided coronary angiography.
2. Successful PCI of the distal circumflex.
A total of 20 minutes of procedural/moderate sedation was utilized. An independent medical service representative was present to assist with and help manage the patient's level of consciousness and physiologic status.
ACCESS:
1. 6 [place] right radial artery using a modified Seldinger technique.
CATHETERS:
1. 6 [place] EBU 3.5 guiding catheter.
HEMODYNAMIC DATA
Weight (kg): 77.6
AO (s/d/x, mmHg): 104/71/86
LV (s/x mmHg): Not obtained.
LEFT VENTRICULOGRAPHY: Not performed.
CORONARY ANGIOGRAPHY
Dominance: Left.
Left Main: Large size, bifurcating vessel. There is no coronary artery disease.
LAD: Large vessel giving rise to 1 large diagonal. There is a 30% lesion in the ostium of the LAD. Patent stents are visible in the proximal and mid LAD with no evidence of in-stent restenosis.
Ramus: Congenitally absent.
Circumflex: Large size, dominant vessel giving rise to 1 large obtuse marginal before terminating as an LPDA. The large OM subsequently bifurcates into 2 large daughter vessels. There is a 50-60% lesion in the distal circumflex, proximal to the
origin of the LPDA.
RCA: Not injected. Known to be a small size, nondominant vessel.
INTERVENTION(S)
1. Successful IFR of the 50-60% distal circumflex lesion, demonstrating nonocclusive disease (iFR = 1.0).
Narrative:
The decision was made to perform physiologic testing. The 6 [place] EBU 3.5 guiding catheter was advanced into the ascending aorta and seated in the left main coronary artery. Additional heparin was given to obtain an ACT greater than 250 seconds.
An iFR wire was zeroed outside of the body, then inserted into the guiding sheath. The wire was advanced and the transducer was normalized just outside of the guiding catheter tip. The wire was advanced into the distal circumflex/LPDA, beyond the
50-60% lesion in question. Three iFR measurements were taken. The lesion was determined to be nonocclusive (1.0).
Closure Device: Vascular band.
Radiation (mGy): 143.03
DAP (cm2.Gy): 9.2301
Fluoroscopy time (minutes): 4.4
CONCLUSIONS
1. Left dominant circulation with a 30% lesion in the ostium of the LAD, patent stents in the proximal and mid LAD from recent anterior STEMI and a nonocclusive 50-60% lesion in the distal circumflex (IFR = 1.0).
RECOMMENDATIONS:
1. Expectant management after cardiac catheterization via right radial approach.
2. Limited weight bearing on the right wrist for one week.
3. Dual antiplatelet therapy with aspirin and ticagrelor for at least 12 months, followed by aspirin indefinitely.
4. Continue OMT/GDMT as hemodynamics will tolerate.
5. Aggressive secondary prevention with high-dose, high potency statin.
6. Patient has been referred to cardiac rehab.
Copy to: Wyatt Fung D.O.
Hung Arce DO, FACC, FACP
[2025-03-27 15:54] LABS: ACT-LR - POC > 397 Seconds (116-155)
[2025-03-27] MEDS: LIPITOR 40 MG PO (18:09)
--- NOTE | 2025-03-27 18:22 | PTCARENOTE ---
able to remove R band, noticed above arm band a hematoma, held manual pressure for 10minutes, dsg. applied. ecchymotic, tender to touch, distal pulse palpable.
[2025-03-27] MEDS: COREG 3.125 MG PO (20:48)
--- NOTE | 2025-03-28 02:49 | PTCARENOTE ---
Pt denies pain or discomfort this shift, aaox3, ambulates self in room w/o any complaints. R radial site CDI, slightly ecchymotic, good radial pulse. SB on the monitor, HR 50-60's, bp stable. Call kat within reach.
[2025-03-28 03:37] VITALS: BP 134/97
[2025-03-28] MEDS: ATIVAN 0.5 MG PO (04:55)
--- NOTE | 2025-03-28 06:14 | PTCARENOTE ---
Pt c/o 'palpitations/anxiety feeling' waking him up from sleep at around 0230, denied chest pain, dizziness or SOB. SR/SB on the tele monitor with frequent pvc's. On review HR 55-65. Pox 98% RA. BP 134/97. R radial r EKG obtained and sent for review
via TT to the psychiatric nurse practitioner CT Tk FULLER, no new orders noted. Also, pt admitting craving smoking, psychiatric nurse practitioner CELL MAKER made aware. Nicotine patch ordered and d/c shortly after, ativan 0.5 mg given instead. Pt asleep at this time, no further complaints noted.
Call kat within reach, advised to call for assistance.
[2025-03-28 07:04] VITALS: BP 130/96
--- NOTE | 2025-03-28 08:11 | W.PN.CD ---
Today's Communication / Plan
-
Home on current medical therapy
post cath activity restrictions
cardiac rehab c/s
Impression / Plan
-
Impression/Plan: 55 y/o male tobacco user with significant EtOH intake admitted with anterior STEMI.
#ACS/STEMI
-Acute.
-Troponin peaked at 24.4.
-S/P IVUS guided PCI to the proximal/mid LAD (overlapping Xience Skypoint 3.0 x 38 GREGORY and 3.5 x 23 GREGORY, post dilated with 3.25 NCB throughout, 3.75 NCB in the overlap and proximal stent and 5.0 x 8 NCB in the proximal margin of proximal stent),
03/26/2025.
-Echocardiogram LVEF 45% with LAD wall motion abnormality, LVED 10 on cath
-DAPT with aspirin and ticagrelor for at least 12 months, followed by aspirin indefinitely.
-NSVT yesterday. Amiodarone given with resolution. Beta cleopatra withheld due to bradycardia (50's). Continue carvedilol 3.125 mg BID and d/c'd amiodarone.
-High dose, high potency statin.
#CAD
-New diagnosis.
-Residual 50-60% lesion in dLCx (proximal to LPDA).
-Relook below, no indication for intervention.
# CMY:
-ischemic
-no chf, NYHA 1
-on BB
-will add ARB and assess bp response.
-continue SGLT2i if develops NYHA 2 symptoms
#Tobacco abuse
-Chronic.
-Counseled to complete cessation.
#EtOH use
-Chronic, 5-6 beers daily.
-MSAS protocol.
-Recommend curbing use to < 2 drinks daily.
#PPx
-SCD's for DVT/VTE.
-No role for PPI.
#Dispo
-IVU status.
-Full code.
Subjective/Interval History:
He is feeling well without complaint.
DATA:
Cardiac catheterization/PCI, 03/26/2025:
CONCLUSIONS
1. Left dominant circulation with a 50-60% lesion in the distal circumflex proximal to the LPDA, a 30% lesion in the ostium of the LAD, a 70% lesion in the proximal/mid LAD and an acute mid LAD occlusion status post successful aspiration
thrombectomy and IVUS guided PCI of the proximal/mid LAD lesions (overlapping Xience Skypoint 3.0 x 38 GREGORY and 3.5 x 23 GREGORY, postdilated with a 3.0 NC balloon throughout, 3.25 NC balloon throughout the distal stent, a 3.75 NC balloon throughout the
entire proximal stent and overlap and a 5.0 x 8 NC balloon in the proximal margin of the proximal stent) with reduction in LAD stenoses to 0%, restoring WILD-3 flow.
2. Normal filling pressures (LVEDP = 10 mmHg at 77.6 kg).
Cath 03/27/25:
CONCLUSIONS
1. Left dominant circulation with a 30% lesion in the ostium of the LAD, patent stents in the proximal and mid LAD from recent anterior STEMI and a nonocclusive 50-60% lesion in the distal circumflex (IFR = 1.0).
TTE 03/27/25:
Normal LV size with mildly reduced systolic function.
LVEF is 45% by visual estimation. LAD territory hypo-/akinesis.
Normal right ventricular size and function.
No significant valvular disease.
Estimated pulmonary artery pressure of 25 mmHg, assuming a right atrial
pressure of 3 mmHg.
No prior study available for comparison.
Physical Exam
Vital Signs/Labs
Vital Signs
Temp Pulse Resp BP Pulse Ox
97.8 F 62 15 134/97 99
03/28/25 07:58 03/28/25 04:15 03/28/25 07:58 03/28/25 03:37 03/28/25 07:58
03/26/25 03:56
03/27/25 08:44
APTT 28.5 Sec (23.4-35.0) 03/26/25 00:28
Magnesium 2.2 mg/dl (1.6-2.3) 03/27/25 08:44
Triglycerides 71 mg/dl (10-149) 03/27/25 08:44
LDL Cholesterol, Calc 90 mg/dl 03/27/25 08:44
VLDL Cholesterol, Calc 14 mg/dl (0-30) 03/27/25 08:44
HDL Cholesterol 61 mg/dl 03/27/25 08:44
03/25/25
23:28
Jej-B-Eksvpbrpmtg Pept 169
LAB Results
03/25/25 03/26/25 03/26/25
23:28 03:56 08:50
Troponin I 0.135 H* 7.020 H* D 21.600 H* D
03/26/25 03/26/25
14: 20:40
Troponin I 24.400 H* 20.400 H*
Physical Exam
Constitutional: No acute distress
Cardiovascular: Rhythm & rate is regular, Pedal edema is absent, JVD pressure is normal, Systolic murmur absent and Diastolic murmur absent
Respiratory: Respiratory effort normal, Lungs clear to auscul., Wheeze Absent, Crackles Absent and Rhonchi Absent
Neuro/Psych: AO x 3
Other: Cath Site (RRA well healed, normal pulse no hematoma)
Data Reviewed
-
Date of Service: March 28, 2025
Medical Decision Making: Review of Case with other Provider
--- NOTE | 2025-03-28 09:17 | W.DS.TRANS ---
DC Summary - Plant Maintenance Technician
-
Discharge Instructions:
Discharge Diagnosis/Procedures STEMI
Procedure: Cardiac catheterization with
thrombectomy and IVUS guided PCI of proximal/mid
LAD 03/26/2025
Procedure: Cardiac catheterization with IFR
negative circumflex 03/27/2025
Diet Low Cholesterol
Activity No strenuous activity
Additional Activity See attached instructions
Driving Restrictions As prior to admission
Bathing Restrictions None
Other Services Cardiac Rehab
Instructions:
Stand-Alone Forms: DC Instructions- Cath/EP Lab
Return to Work
Changes to Home Medications: Yes
Discharge Medications:
DC Medications w/original date entered in [facility]
acetaminophen 325 mg tablet 650 mg (2 x 325 mg) PO Q4HPRN PRN mild pain #30 tabs 03/27/25
aspirin 81 mg chewable tablet 81 mg PO DAILY #90 tabs 03/27/25
atorvastatin 40 mg tablet 40 mg PO QPM #30 tabs 03/27/25
nitroglycerin 0.4 mg sublingual tablet 0.4 mg sublingual [id number] PRN ANGINA #25 tabs 03/27/25
ticagrelor 90 mg tablet (Brilinta) 90 mg PO BID #60 tabs 03/27/25
carvedilol 3.125 mg tablet 3.125 mg PO BID #60 tabs 03/28/25
valsartan 40 mg tablet 40 mg PO DAILY #30 tabs 03/28/25
Home Medication Changes
All medications are new.
Pending Results: No
[2025-03-28] MEDS: THIAMINE INJECTION 200 MG IV (09:24)
[2025-03-28] MEDS: COREG 3.125 MG PO (09:28)
[2025-03-28] MEDS: DIOVAN 40 MG PO (09:29)
[2025-03-28] MEDS: LOW STRENGTH ASPIRIN 81 MG PO (09:29)
[2025-03-28] MEDS: FOLVITE 1 MG PO (09:30)
[2025-03-28] MEDS: BRILINTA 90 MG PO (09:30)
--- NOTE | 2025-03-28 10:11 | PTCARENOTE ---
received patient this am in bathroom brushing teeth. patient has no cp or discomfort. patient did ask me to look at a bandage put on left side back area where defib pad was placed and taken off with skin removal, cleaned area and reapplied foam dsg.
monitor shows NSR with PVC's. VSS. right radial is ecchymotic, tender to touch but palpable radial pulse. patient will be discharged to home today.
--- NOTE | 2025-03-28 11:27 | PTCARENOTE ---
D/C instructions given to patient and , both verbalizes understanding. INT D/C'd., telemetry D/C'd, personal belongings packed and sent home with patient. D/C to home via wc accompanied by staff.
== END 2025-03-28 11:36 | disposition home or self-care (01) | DRG 322 ==
LOC: IVU 02:56
PROVIDERS: Emergency Medicine; Nurse Practitioner Gerontology; ADMITTING PHYSICIAN Internal Medicine Cardiovascular Disease; EMERGENCY PHYSICIAN Emergency Medicine
PROC: B240ZZ3 Ultrasonography of Single Coronary Artery, Intravascular (ICD-10-PCS; 2025-03-26)
PROC: 027035Z Dilation of Coronary Artery, One Artery with Two Drug-eluting Intraluminal Devices, Percutaneous Approach (ICD-10-PCS; 2025-03-26)
PROC: 4A023N7 Measurement of Cardiac Sampling and Pressure, Left Heart, Percutaneous Approach (ICD-10-PCS; 2025-03-26)
PROC: B2111ZZ Fluoroscopy of Multiple Coronary Arteries using Low Osmolar Contrast (ICD-10-PCS; 2025-03-26)
PROC: 02C03ZZ Extirpation of Matter from Coronary Artery, One Artery, Percutaneous Approach (ICD-10-PCS; 2025-03-26)
PROC: 4A033BC Measurement of Arterial Pressure, Coronary, Percutaneous Approach (ICD-10-PCS; 2025-03-27)
DX: I21.09 ST elevation (STEMI) myocardial infarction involving other coronary artery of anterior wall (principal); I47.20 Ventricular tachycardia, unspecified; I25.10 Atherosclerotic heart disease of native coronary artery without angina pectoris; I25.5 Ischemic cardiomyopathy; F17.210 Nicotine dependence, cigarettes, uncomplicated
CPT/HCPCS: 71046; 80048; 80053; 80061; 83036; 83735; 83880; 84443; 84484; 85025; 85027; 85347; 85730; 92978; 93005; 93306; 93458; 93799; 96374; 96375; 99152; 99153; 99291; C1725; C1753; C1757; C1769; C1874; C1894; C9606; J1327; Q9967

== ENCOUNTER → 2025-06-26 14:59 | Outpatient (REF) | payer BC, SELFPAY | LOC: RCS 14:59 | PROVIDERS: ATTENDING PHYSICIAN Nurse Practitioner; FAMILY PHYSICIAN Family Medicine | DX: I25.10 Atherosclerotic heart disease of native coronary artery without angina pectoris (principal); E78.00 Pure hypercholesterolemia, unspecified; R00.2 Palpitations | CPT/HCPCS: 93306 ==